=== PATIENT | female | born 1960 | race American Indian/Alaskan Native ===

== ENCOUNTER 2016-10-24 10:10 | Outpatient (CLI) | payer OTHER ==
--- NOTE | 2016-10-24 13:10 | Mammography Report ---
Bilateral digital screening mammogram with CAD. Comparison is made to a previous study on March 22, 2015. Findings: The circumscribed right breast mass has decreased in size compared to the previous study now measuring 2.2 cm in diameter. The radiographic features are benign. Scattered benign calcifications are stable with no suspicious microcalcifications. No areas of architectural distortion or suspicious findings. Impression: Stable benign findings. BI-RADS code: 2. Recommendation: Annual screening.
== END 2016-10-24 10:11 | disposition home or self-care (01) ==
LOC: MAMMO 10:10
PROVIDERS: ATTEND Obstetrics & Gynecology Gynecology
DX: Z12.31 Encounter for screening mammogram for malignant neoplasm of breast (principal)
CPT/HCPCS: 77067; G0202

== ENCOUNTER 2017-11-28 08:26 | Outpatient (CLI) | payer OTHER ==
--- NOTE | 2017-11-28 13:17 | Mammography Report ---
Bilateral mammogram: Compared to 10/24/16. CAD study utilized. Findings: Scattered glandular parenchyma bilaterally. No distinct mass or microcalcification. Benign calcifications and benign densities bilaterally without significant interval change. Impression: Benign findings. Annual followup recommended. BI-RADS CATEGORY: 2 = Benign ACR BI-RADS MAMMOGRAPHIC CODES: 0 = Needs additional imaging evaluation; 1 = Negative; 2 = Benign; 3 = Probably benign; 4 = Suspicious; 5 = Malignant; 6 = Known biopsy-proven malignancy COMMENT: 1. Dense breast tissue, i.e., adenosis, fibrocystic changes, etc., may obscure an underlying neoplasm. 2. Approximately 10% of cancers are not detected with mammography. 3. A negative mammography report should not delay biopsy if a clinically suspicious mass is present. COMMENT: Patient follow-up letters are generated in [employer].
== END 2017-11-28 08:27 | disposition home or self-care (01) ==
LOC: MAMMO 08:26
PROVIDERS: ATTEND Obstetrics & Gynecology Gynecology
DX: Z12.31 Encounter for screening mammogram for malignant neoplasm of breast (principal)
CPT/HCPCS: 77067